=== PATIENT | female | born 1985 | race Caucasian/White ===

== ENCOUNTER 2025-09-26 15:12 | Emergency (ER) | payer OTHER | END 2025-09-26 15:49 | disposition home or self-care (01) | LOC: BURERS 15:12 | DX: S91.311A Laceration without foreign body, right foot, initial encounter (principal); I10 Essential (primary) hypertension; Z23 Encounter for immunization; W26.0XXA Contact with knife, initial encounter | CPT/HCPCS: 12002; 90471; 90715 ==